=== PATIENT | male | born 1990 | race Caucasian/White ===

== ENCOUNTER 2024-10-26 19:07 | Emergency (ER) | payer OTHER, SELFPAY ==
[2024-10-26 19:14] VITALS: BP 164/104; PULSE 112; RESP 16; TEMP 37.2; O2SAT 97
[2024-10-26 19:22] VITALS: PULSE 121; RESP 16; TEMP 37.1
[2024-10-26] MEDS: Ondansetron O.D.T. 4 MG TABEF PO (19:32)
--- NOTE | 2024-10-26 19:53 | ED.GENADUL_ITS ---
Discharge Plan Disposition Patient Disposition: Home Discharge Details Clinical Impression: Traveler's diarrhea Primary Care Provider: None,None ED Provider: Shanthi Lan Home Meds and New Rx's Prescriptions: New ondansetron 4 mg tablet,disintegrating 4 mg PO Q8H PRNQty: 7 0RF Discharge Instructions Instructions: Travelers' diarrhea Additional Instructions: Please continue the antibiotics as prescribed. You may use the Zofran ODT as needed for nausea/vomiting. Stay well-hydrated. Please be sure to drink plenty of electrolyte rich fluids such as Pedialyte and Gatorlyte, adding in chicken and beef broth, then gentle foods like bananas, toast, chicken noodle soup, and noodles without sauce or seasonings. You may use Tylenol as needed for body aches. Your potassium was a bit low today. I recommend supplementing with potassium rich foods such as oranges, bananas, and potatoes. This should correct itself once you are eating regular foods again. Return to emergency care if you are unable to keep down any fluids, have severe abdominal pain, have blood in your stool or vomit, decreased urine output, or if you are very worried and need to be rechecked again immediately. Discharge Data Discharge Date/Time-TO BE ENTERED AT DEPARTURE: 10/26/24 22:11 HPI General Date/Time Provider Initiated Documentation: 10/26/24 19:11 . HPI Narrative: Law is a 33year old male who presents to the emergency department today for evaluation of subjective fever/chills, headache, body aches/joint aches, nausea, and frequent watery diarrhea. He reports symptoms started 3 days ago while traveling to [facility], [place]. Today he saw a telehealth doctor, was prescribed azithromycin, but started vomiting after taking his medication. He vomited 3 times. Denies blood in stool or vomit. He was in [facility], arrived 1 week ago and returned yesterday. He is not sure what may have caused symptoms, other travelers in his green party were sick with food poisoning that only lasted a day or 2, his has been the worst. He admits that he was also bitten by a number of mosquitoes while he was on excursions. Denies significant past medical history, immunocompromise, abdominal surgeries. Physical exam reassuring. Law is alert and oriented, no acute distress. Moist mucous membranes. Easy work of breathing, lung sounds clear bilaterally. Normal heart sounds, tachycardia noted. Abdomen is soft, nondistended, nontender to palpation with normoactive bowel sounds. D/dx includes but is not limited to: Bacterial gastroenteritis related to traveling and developing country, dehydration, electrolyte imbalance. Low suspicion for Shiga toxin producing E. coli I independently interpreted the following tests: CBC reassuring. CMP consistent with gastric losses, mild hypokalemia, hyponatremia, and hypomagnesemia noted. Creatinine 1.5, normal BUN. While in the emergency department, Law received p.o. Zofran and oral rehydration, he was able to sip fluids without difficulty, but was worried that he is not feeling better. 1 L IV fluids and Toradol given. He reports feeling significantly better, and feels he is good to go home. VS improved after rehydration. History and presentation consistent with bacterial gastroenteritis. Recommend initiating azithromycin as prescribed. Stool samples pending Reviewed discharge instructions with patient, including symptomatic management, advancement of diet, and red flags indicating need for return to emergency care Related Data Home Medications ?Medication ?Instructions ?Recorded ?Confirmed ondansetron 4 mg disintegrating 4 mg PO Q8H PRN #7 tabs 10/26/24 tablet Previous Rx's ?Medication ?Instructions ?Recorded ondansetron 4 mg disintegrating 4 mg PO Q8H PRN #7 tabs 10/26/24 tablet Allergies Allergy/AdvReac Type Severity Reaction Status Date / Time No Known Allergies Allergy Unverified 10/26/24 19:13 General Stated Complaint: Nausea/Vomit/Diar MAYRA: 3 Review of Systems Narrative: see HPI Exam Const General: cooperative, comfortable, no acute distress, well developed and well groomed Nutritional Appearance: average body habitus and well nourished Orientation: alert and oriented x3 HENMT Face and sinus: normal facial exam Mouth: oral mucosae normal, lip normal, tongue normal, salivary ducts normal, oropharynx normal and moist mucous membranes Resp Effort & Inspection: normal respiratory effort and able to speak in complete sentences Auscultation: clear to auscultation bilaterally Cardio Rate: tachycardic Rhythm: regular rhythm GI Inspection: normal to inspection and non-distended Palpation: soft, not rigid and nontender Auscultation: normal bowel sounds Skin General skin exam: no rashes or lesions noted Course Vital Signs Vital signs: Vital Signs Temperature 37.2 C 10/26/24 19:14 Pulse 112 H 10/26/24 19:14 Respiratory Rate 16 10/26/24 19:14 Blood Pressure 164/104 H 10/26/24 19:14 Pulse Oximetry 97 10/26/24 19:14 Temperature 37.1 C 10/26/24 19:22 Temperature Source Oral 10/26/24 19:22 Pulse 121 H 10/26/24 19:22 Respiratory Rate 16 10/26/24 19:22 Blood Pressure 164/104 H 10/26/24 19:14 Blood Pressure Position Sitting 10/26/24 19:14 Pulse Oximetry 97 10/26/24 19:14 Oxygen Delivery Method Room Air 10/26/24 19:14 Oxygen Flow Rate 0 10/26/24 19:14 Pain Level 0 10/26/24 19:14 Medical Decision Making Quality:SDOH Health Related Social Needs: No Data to Display PFSH All Active Problems (Updated 10/26/24 @ 21:39 by Shanthi Sanford) Traveler's diarrhea (Acute) Social History Smoking/Tobacco Use Status: Never Smoking risk assessment performed?: Yes Alcohol Intake: current Alcohol Intake frequency: a few times a month Alcohol type: beer Substance use type: does not use Housing: house Do you feel safe at home: Yes
[2024-10-26] MEDS: Electrolyte SOLUTION,ORAL 1000 ML BTL (19:57)
[2024-10-26 20:06] LABS: Abs Immature Grans 0.03 10^3/uL (0.0-0.06); Absolute Basophil Count 0.03 10^3/uL (0.0-0.2); Absolute Eosinophil Count 0.27 10^3/uL (0.0-0.7); Absolute Lymphocyte Count 0.72 10^3/uL (1.2-3.4); Absolute Monocyte Count 1.05 10^3/uL (0.1-0.8); Absolute Neutrophil Count 7.01 10^3/uL (1.2-6.7); Basophils % 0.3 %; HCT 49.4 % (40.0-50.0); Immature Grans % 0.3 %; Lymphocytes % 7.9 %; MCH 29.4 pg (27.0-33.0); MCHC 34.4 % (32.0-36.0); MCV 86 fL (80-95); MPV 9.3 fL (8.0-11.0); Monocytes % 11.5 %; Platelet Count 270 10^3/uL (130-400); RBC 5.78 10^6/uL (4.36-5.78); RDW 12.9 % (11.8-14.1); RDW-SD 40.4 fL; WBC 9.11 10^3/uL (4.4-10.8)
[2024-10-26 20:16] LABS: Anion Gap 11.6 mmol/L (3-11); BUN 10 mg/dL (7-18); CO2 27.4 mmol/L (21.0-32.0); CREATININE 1.5 mg/dL (0.70-1.30); Calcium 9.8 mg/dL (8.5-10.1); Chloride 94 mmol/L (98-107); Estimated GFR 63.04 (mL/min/1.73m2); Glucose 124 mg/dL (74-106); Magnesium 1.7 mg/dL (1.8-2.4); Sodium 133 mmol/L (136-145)
[2024-10-26] MEDS: Ketorolac 15 MG/ML VIAL IVP (21:05)
[2024-10-26] MEDS: Normal Saline 1,000 ML 1000 ML IV (21:05)
[2024-10-26] MEDS: Potassium Bicarbonate/Cit AC 25 MEQ TABLET.EFF PO (21:11)
[2024-10-26] MEDS: Azithromycin 250 MG TAB 500 MG PO (21:11)
[2024-10-26 21:14] VITALS: PULSE 94; O2SAT 96
[2024-10-26] MEDS: Ondansetron O.D.T. 4 MG TABEF, 3 TABS/BTL PO (21:43)
[2024-10-26 22:11] VITALS: BP 159/77; PULSE 96; RESP 16; TEMP 37; O2SAT 96
[2024-10-27 19:51] LABS: Campylobacter PCR Negative (Negative); Salmonella PCR Positive (Negative); Shiga Toxin PCR Negative (Negative); Shigella/Enteroinvasive Ecoli Negative (Negative)
--- NOTE | 2024-10-28 15:07 | W.ED.FU ---
Follow Up Plan: Discussed results of Salmonella with patient's and patient, patient was transition to ciprofloxacin from azithromycin today. He will take the ciprofloxacin as prescribed. He states he still having 20+ episodes of diarrhea daily they are wondering why this is not improving. He was encouraged to give the antibiotics another several days to work and to keep hydrated. Reiterated that patient able to return to the emergency department at any time for reassessment and hydration as deemed necessary.
--- NOTE | 2024-10-29 16:17 | NUR.NOTE ---
Nursing Note: Received call from patient questioning his bloating and wondering if this is a side effect of the cipro he is taking. Return precautions given and discussed possible side effects of his infection and medications. Pt states he is eating live cultures, probiotics, and the diarrhea is slowing down. Pt verbalized understanding
== END 2024-10-26 22:11 | disposition home or self-care (01) ==
PROVIDERS: Emergency Provider Nurse Practitioner Family
DX: R19.7 Diarrhea, unspecified (principal); R11.0 Nausea
CPT/HCPCS: 36415; 80048; 87505; 96361; 96374; 99284; 83735; 85025; J1885

== ENCOUNTER 2024-10-29 17:40 | Observation (INO) | payer OTHER, SELFPAY ==
[2024-10-29 17:43] VITALS: BP 138/85; PULSE 83; RESP 15; TEMP 36.6; O2SAT 98
[2024-10-29 17:47] VITALS: BP 138/85; PULSE 83; RESP 15; TEMP 36.6; O2SAT 98
--- NOTE | 2024-10-29 18:00 | DI.CT_ITS ---
Exam(s) CT RENAL COLIC WO EXAM: CT RENAL COLIC WO CLINICAL HISTORY: R flank pain. TECHNIQUE: Imaging Protocol: Axial computed tomography images with coronal and sagittal reformatted images were created and reviewed CONTRAST MATERIAL: Intravenous: none Oral: None COMPARISON: No exams were available for comparison FINDINGS: VISUALIZED LUNG BASES: No nodules nor pleural effusions evident. ABDOMEN: There is no ascites. LIVER: There are no obvious focal hepatic lesions evident of this noninfused study. GALLBLADDER/BILIARY: Gallbladder wall is thickened and there is some pericholecystic fat stranding in the gallbladder fossa. Also small densities within the gallbladder either polyps or small calculi. CBD is not dilated. PANCREAS: No evidence of pancreatic mass nor dilatation of the pancreatic duct. SPLEEN: Spleen size is upper normal, with cephalocaudal measurement of 13 cm. ADRENALS: There are no significant adrenal masses. KIDNEYS:No cysts evident. No solid renal masses. No calculi nor hydronephrosis.. Ureters are not dil ated ABDOMINAL AORTA: Abdominal aorta is not enlarged. LYMPH NODES: There is no retroperitoneal nor paraaortic adenopathy. ABDOMINAL WALL: No evidence of significant anterior abdominal wall nor inguinal hernia. GI: There is no evidence of bowel obstruction, free air, nor abscess. PELVIS: LYMPH NODES: There is no intrapelvic nor inguinal adenopathy. GI: There is a 2 mm calcification noted within the cecum at its junction with the appendix.. The daria endix diameter is 5 mm, within normal limits. There is no periappendiceal streaking..No evidence of sigmoid diverticulitis. URINARY BLADDER: Bladder wall is mildly uniformly thickened. No distinct mass. No radiopaque calcul i seen in the bladder lumen. REPRODUCTIVE: Prostate size upper normal. Seminal vesicles unremarkable. OSSEOUS: No fractures. No ominous osseous lesions. IMPRESSION: 1. Gallbladder wall appears slightly thickened and there is some mild pericholecystic fat stranding a s well as small densities in the gallbladder lumen. The gallbladder itself is not distended and the CBD is not dilated. Recommend follow-up right upper quadrant ultrasound as these findings are suspic ious for acute cholecystitis. 2. No evidence of urinary tract calculi. No hydronephrosis nor hydroureter. No radiopaque calculi s een in the urinary bladder lumen. 3. There is an appendicolith but no evidence of acute appendicitis. Report called by myself to the ER provider 10/29/2024 at 6:45 p.m. RADIATION DOSE DELIVERED: 830.81mGy.cm Total DLP DATA REPOSITORY: All CT scans at this facility are submitted to the National Radiology Data Registry (NRDR) Dose Index Registry (DIR) with the [employer] ([employer]). RADIATION OPTIMIZATION: All CT scans at this facility use at least one of these dose optimization te chniques: automated exposure control; mA and/or kV adjustment per patient size (includes targeted exa ms where dose is matched to clinical indication); or iterative reconstruction.
[2024-10-29 18:34] LABS: Abs Immature Grans 0.06 10^3/uL (0.0-0.06); Absolute Basophil Count 0.05 10^3/uL (0.0-0.2); Absolute Eosinophil Count 0.06 10^3/uL (0.0-0.7); Absolute Lymphocyte Count 2.02 10^3/uL (1.2-3.4); Absolute Neutrophil Count 5.33 10^3/uL (1.2-6.7); Basophils % 0.6 %; Eosinophils % 0.7 %; HCT 47.3 % (40.0-50.0); HGB 16.7 g/dL (13.5-17.5); Immature Grans % 0.7 %; Lymphocytes % 22.4 %; MCHC 35.3 % (32.0-36.0); MCV 82 fL (80-95); MPV 9.2 fL (8.0-11.0); Monocytes % 16.6 %; Platelet Count 352 10^3/uL (130-400); RBC 5.75 10^6/uL (4.36-5.78); RDW 12.5 % (11.8-14.1); RDW-SD 38.1 fL; WBC 9.02 10^3/uL (4.4-10.8)
[2024-10-29 18:43] LABS: Bilirubin Negative (Negative); Blood Trace-intact (Negative); Clarity Clear (Clear); Glucose Negative (Negative); Ketones Negative (Negative); Leukocyte Esterase Negative (Negative); Nitrite Negative (Negative); Specific Gravity 1.015 (1.005-1.025); Urobilinogen 0.2 mg/dL (Up to 0.2)
[2024-10-29 18:44] LABS: Anion Gap 7.5 mmol/L (3-11); BUN 16 mg/dL (7-18); CO2 29.5 mmol/L (21.0-32.0); CREATININE 1.4 mg/dL (0.70-1.30); Calcium 9.5 mg/dL (8.5-10.1); Chloride 95 mmol/L (98-107); Estimated GFR 68.49 (mL/min/1.73m2); Glucose 103 mg/dL (74-106); Lipase 57 U/L (<78); Sodium 132 mmol/L (136-145)
--- NOTE | 2024-10-29 18:44 | W.ED.GENAD ---
Discharge Plan Disposition Patient Disposition: Admit to [facility] Condition: Stable Discharge Details Chief Complaint: Urinary Clinical Impression: Cholecystitis with cholelithiasis, Salmonella enteritis, Acute hepatitis Primary Care Provider: None,None ED Provider: Alfredito Moran Home Meds and New Rx's Prescriptions: No Action ondansetron 4 mg tablet,disintegrating 4 mg PO Q8H PRNQty: 7 0RF ciprofloxacin HCl 500 mg tablet 500 mg PO Q12H dextroamphetamine-amphetamine [Adderall] 20 mg tablet 20 mg PO DAILY PRN (Reason: work) HPI General Date/Time Provider Initiated Documentation: 10/29/24 17:48. HPI Narrative: 33 year-old male presents to ED today by POV/ambulating with his spouse with a chief complaint of continued diarrhea, R flank pain, difficulty passing urine, dark urine- in the setting of confirmed salmonella infection after a recent trip to the [place], where many in his constitution party got sick, but all have recovered save for him. He has been having 25 bouts per day of diarrhea, but pursuing aggressive PO hydration. He was switched to ciprofloxacin after a few doses of azithromycin, and has been compliant with two doses of cipro. Quality described as continued diarrhea, with flank pain on R side, no radiation to vomiting, chest pain, fever, anterior abdominal pain, black/bloody stools, cough, shortness of breath, headache, near syncope. Severity is described as moderate to severe for diarrhea. Palliating factors include ciprofloxacin and Zofran with some relief. Provoking factors include nothing specific. Patient not anticoagulated. Related Data Home Medications ?Medication ?Instructions ?Recorded ?Confirmed ondansetron 4 mg disintegrating 4 mg PO Q8H PRN #7 tabs 10/26/24 10/29/24 tablet ciprofloxacin HCl 500 mg tablet 500 mg PO Q12H 10/29/24 10/29/24 dextroamphetamine-amphetamine 20 20 mg PO DAILY PRN work 10/29/24 10/29/24 mg tablet (Adderall) Previous Rx's ?Medication ?Instructions ?Recorded ondansetron 4 mg disintegrating 4 mg PO Q8H PRN #7 tabs 10/26/24 tablet Allergies Allergy/AdvReac Type Severity Reaction Status Date / Time No Known Allergies Allergy Unverified 10/29/24 17:48 General Stated Complaint: Urinary MAYRA: 3 Review of Systems All systems reviewed & are unremarkable except as noted in HPI and below Exam Narrative Exam Narrative: GENERAL APPEARANCE: Well-nourished, non-toxic, awake and alert, atraumatic, no acute distress. SKIN: Warm, pink, dry, intact, without rashes/lesions/ulcerations. HEAD: Normocephalic, atraumatic, normal hair distribution for gender/age. EYES: Normal conjunctiva, no exudates on lids/lashes. ENT: Nares patent, no circumoral cyanosis, no facial swelling NECK: Supple, trachea midline, painless cervical ROM. LUNGS/CHEST: Lungs CTA bilaterally- no rhonchi/rales/wheezes diffusely, non-labored respirations, normal A/P diameter, symmetrical expansion, no chest wall deformity HEART (CV/PV): Regular rate and rhythm without murmur, no peripheral edema, no JVD. ABDOMEN: Soft, non-distended, no guarding, no RUQ tenderness, negative Ribeiro's sign, R CVA tenderness to percussion MSK: Normal ROM, no swelling/deformity to bilateral UEs or LEs, moving all extremities without weakness, no cyanosis, spine midline without tenderness, normal curvature. NEURO: Mental Status AAOx4 - alert to person, place, time, events No facial droop, no forehead involvement. Motor: No focal weakness - strength 5/5 in bilateral UEs and LEs, proximal and distal, symmetric. Sensory: sensation intact to light touch globally. Gait normal: patient ambulated without ataxia into ED room. PSYCH: euthymic, cooperative, pleasant, appropriate speech Course Vital Signs Vital signs: Vital Signs Temperature 36.6 C 10/29/24 17:43 Pulse 83 10/29/24 17:43 Respiratory Rate 15 10/29/24 17:43 Blood Pressure 138/85 10/29/24 17:43 Pulse Oximetry 98 10/29/24 17:43 Temperature 36.6 C 10/29/24 17:47 Pulse 83 10/29/24 17:47 Respiratory Rate 15 10/29/24 17:47 Blood Pressure 138/85 10/29/24 17:47 Blood Pressure Position Sitting 10/29/24 17:47 Pulse Oximetry 98 10/29/24 17:47 Oxygen Delivery Method Room Air 10/29/24 17:47 Oxygen Flow Rate 0 10/29/24 17:47 Lab/Test Results Lab/Test Results: Laboratory Tests Range/Units 10/29/24 18:26 WBC (4.4-10.8) 10^3/uL 9.02 RBC (4.36-5.78) 10^6/uL 5.75 Hgb (13.5-17.5) g/dL 16.7 Hct (40.0-50.0) % 47.3 MCV (80-95) fL 82 D MCH (27.0-33.0) pg 29.0 MCHC (32.0-36.0) % 35.3 RDW (11.8-14.1) % 12.5 Plt Count (130-400) 10^3/uL 352 MPV (8.0-11.0) fL 9.2 Immature Gran % % 0.7 Neutrophils % % 59.0 Lymphocytes % % 22.4 Monocytes % % 16.6 Eosinophils % % 0.7 Basophils % % 0.6 Nucleated RBC % (0.0-0.3) % 0.0 Absolute Neutrophils (1.2-6.7) 10^3/uL 5.33 Absolute Lymphocytes (1.2-3.4) 10^3/uL 2.02 Absolute Monocytes (0.1-0.8) 10^3/uL 1.50 H Absolute Eosinophils (0.0-0.7) 10^3/uL 0.06 Absolute Basophils (0.0-0.2) 10^3/uL 0.05 Medical Decision Making This dictation utilizes [id number] dictation software and may contain unedited grammatical errors. 33 year-old male presents to ED today by POV/ambulating with his spouse with a chief complaint of continued diarrhea, R flank pain, difficulty passing urine, dark urine- in the setting of confirmed salmonella infection after a recent trip to the [place], where many in his constitution party got sick, but all have recovered save for him. He has been having 25 bouts per day of diarrhea, but pursuing aggressive PO hydration. He was switched to ciprofloxacin after a few doses of azithromycin, and has been compliant with two doses of cipro. Quality described as continued diarrhea, with flank pain on R side, no radiation to vomiting, chest pain, fever, anterior abdominal pain, black/bloody stools, cough, shortness of breath, headache, near syncope. Severity is described as moderate to severe for diarrhea. Palliating factors include ciprofloxacin and Zofran with some relief. Provoking factors include nothing specific. Patients' medical history: Negative, otherwise healthy. Family and social history: Recent travel to the [place]. Pertinent exam findings / vital signs include right CVA tenderness, no right upper quadrant tenderness, negative Ribeiro sign, otherwise nonperitoneal abdomen, lungs CTA, neuro intact, nontoxic afebrile. Differential / pathologies of concern include Salmonella, hepatitis, cholecystitis, renal colic, dehydration, electrolyte abnormality. Diagnostic studies of: -CBC, BMP, magnesium, lipase, liver panel, UA, CT renal study without, acute hepatitis panel. -CBC shows no leukocytosis, no actionable abnormality -'s BMP shows mildly low sodium at 132, low potassium at 3.0 -Magnesium within normal limits -LFTs show a mild early obstructive biliary pattern with a total bili of 1.4 conjugated bili of 0.5, shows acute hepatitis ALT greater than AST 213 greater than 110, UA shows no actionable abnormality -CT shows acute cholecystitis with thickened gallbladder wall and pericholecystic fat stranding, shows no dilation of CBD Interventions of: -1 g magnesium, 1 L NS IVF, 40 mEq potassium p.o., 10 mEq X2 potassium IV, consult with surgery plan to admit for ultrasound of the right upper quadrant tomorrow, trending of LFTs, will continue IV Cipro Flagyl. ED Course/Assessment/Plan: 33-year-old otherwise healthy male returned recently from the [place] and has confirmed Salmonella enteritis, he was switched to ciprofloxacin yesterday and has had 2 doses but continues to have right flank pain, difficulty urinating and some diarrhea, he shows some dehydration on labs, unclear whether he has a complication of hepatitis from Salmonella infection but he does have elevated LFTs, he also shows acute cholecystitis on CT scan, I discussed this with surgery on-call Dr. Ortiz he has no right upper quadrant tenderness, they will have him admitted to medicine overnight to trend these studies and he will be n.p.o. after midnight with ultrasound ordered for tomorrow morning. Dr. Murillo accepted for admission at 1999. Findings not consistent with choledocholithiasis, sepsis, jaundice. Disposition of Cholecystitis without cholelithiasis, Salmonella enteritis, acute hepatitis Patient verbalized understanding of the plan and return to ED criteria and engaged in shared decision making. Medical Records Medical records reviewed: Yes I reviewed the patient's medical records. Imaging Data Radiologic Study: Attestation: I personally reviewed and interpreted this imaging study as follows: Imaging: CT Scan Radiologist's impression: EXAM: CT RENAL COLIC WO CLINICAL HISTORY: R flank pain. TECHNIQUE: Imaging Protocol: Axial computed tomography images with coronal and sagittal reformatted images were created and reviewed CONTRAST MATERIAL: Intravenous: none Oral: None COMPARISON: No exams were available for comparison FINDINGS: VISUALIZED LUNG BASES: No nodules nor pleural effusions evident. ABDOMEN: There is no ascites. LIVER: There are no obvious focal hepatic lesions evident of this noninfused study. GALLBLADDER/BILIARY: Gallbladder wall is thickened and there is some pericholecystic fat stranding in the gallbladder fossa. Also small densities within the gallbladder either polyps or small calculi. CBD is not dilated. PANCREAS: No evidence of pancreatic mass nor dilatation of the pancreatic duct. SPLEEN: Spleen size is upper normal, with cephalocaudal measurement of 13 cm. ADRENALS: There are no significant adrenal masses. KIDNEYS:No cysts evident. No solid renal masses. No calculi nor hydronephrosis.. Ureters are not dilated ABDOMINAL AORTA: Abdominal aorta is not enlarged. LYMPH NODES: There is no retroperitoneal nor paraaortic adenopathy. ABDOMINAL WALL: No evidence of significant anterior abdominal wall nor inguinal hernia. GI: There is no evidence of bowel obstruction, free air, nor abscess. PELVIS: LYMPH NODES: There is no intrapelvic nor inguinal adenopathy. GI: There is a 2 mm calcification noted within the cecum at its junction with the appendix.. The appendix diameter is 5 mm, within normal limits. There is no periappendiceal streaking..No evidence of sigmoid diverticulitis. URINARY BLADDER: Bladder wall is mildly uniformly thickened. No distinct mass. No radiopaque calculi seen in the bladder lumen. REPRODUCTIVE: Prostate size upper normal. Seminal vesicles unremarkable. OSSEOUS: No fractures. No ominous osseous lesions. IMPRESSION: 1. Gallbladder wall appears slightly thickened and there is some mild pericholecystic fat stranding as well as small densities in the gallbladder lumen. The gallbladder itself is not distended and the CBD is not dilated. Recommend follow-up right upper quadrant ultrasound as these findings are suspicious for acute cholecystitis. 2. No evidence of urinary tract calculi. No hydronephrosis nor hydroureter. No radiopaque calculi seen in the urinary bladder lumen. 3. There is an appendicolith but no evidence of acute appendicitis. Report called by myself to the ER provider 10/29/2024 at 6:45 p.m. Lab Data Lab results reviewed: Yes I reviewed the patient's lab results. Labs: Laboratory Tests Range/Units 10/29/24 10/29/24 18:05 18:26 WBC (4.4-10.8) 10^3/uL 9.02 RBC (4.36-5.78) 10^6/uL 5.75 Hgb (13.5-17.5) g/dL 16.7 Hct (40.0-50.0) % 47.3 MCV (80-95) fL 82 D MCH (27.0-33.0) pg 29.0 MCHC (32.0-36.0) % 35.3 RDW (11.8-14.1) % 12.5 Plt Count (130-400) 10^3/uL 352 MPV (8.0-11.0) fL 9.2 Immature Gran % % 0.7 Neutrophils % % 59.0 Lymphocytes % % 22.4 Monocytes % % 16.6 Eosinophils % % 0.7 Basophils % % 0.6 Nucleated RBC % (0.0-0.3) % 0.0 Absolute Neutrophils (1.2-6.7) 10^3/uL 5.33 Absolute Lymphocytes (1.2-3.4) 10^3/uL 2.02 Absolute Monocytes (0.1-0.8) 10^3/uL 1.50 H Absolute Eosinophils (0.0-0.7) 10^3/uL 0.06 Absolute Basophils (0.0-0.2) 10^3/uL 0.05 Sodium (136-145) mmol/L 132 L Potassium (3.5-5.1) mmol/L 3.0 L Chloride (98-107) mmol/L 95 L Carbon Dioxide (21.0-32.0) mmol/L 29.5 Anion Gap (3-11) mmol/L 7.5 BUN (7-18) mg/dL 16 Creatinine (0.70-1.30) mg/dL 1.4 H Est GFR (CKD-EPI 2020) (mL/min/1.73m2) 68.49 Glucose (74-106) mg/dL 103 Calcium (8.5-10.1) mg/dL 9.5 Magnesium (1.8-2.4) mg/dL 2.4 Total Bilirubin (0.2-1.0) mg/dL 1.42 H Conjugated Bilirubin (0.0-0.2) mg/dL 0.5 H AST (15-37) U/L 110 H ALT (16-63) U/L 213 H Alkaline Phosphatase (46-116) U/L 93 Total Protein (6.4-8.2) g/dL 8.2 Albumin (3.4-5.0) g/dL 3.7 Lipase (<78) U/L 57 Urine Color (Yellow) Yellow Urine Clarity (Clear) Clear Urine pH (5-8) 6.0 Ur Specific [place] (1.005-1.025) 1.015 Urine Protein (Neg-Trace) mg/dL 30 H Urine Ketones (Negative) mg/dL Negative Urine Blood (Negative) Trace-intact H Urine Nitrite (Negative) Negative Urine Bilirubin (Negative) Negative Urine Urobilinogen (Up to 0.2) mg/dL 0.2 Ur Leukocyte Esterase (Negative) Negative Urine RBC (0-2) HPF 0-2 Urine WBC (0-5) HPF Negative Ur Epithelial Cells (Negative) HPF Negative Urine Crystals (Negative) HPF Negative Urine Bacteria (Negative) HPF Rare Urine Casts (Negative) LPF Negative Urine Mucus (Negative) Trace Urine Other (Negative) Negative Ur Culture Indicated? No Urine Glucose (Negative) mg/dL Negative Quality:SDOH Health Related Social Needs: No Data to Display PFSH All Active Problems (Updated 10/29/24 @ 20:28 by NORMA Jones) Cholecystitis with cholelithiasis (Acute) Acute hepatitis (Acute) Salmonella enteritis (Acute) Traveler's diarrhea (Acute) Social History Smoking/Tobacco Use Status: Never Smoking risk assessment performed?: Yes Alcohol Intake: current Alcohol Intake frequency: a few times a month Alcohol type: beer Substance use type: does not use Housing: house Do you feel safe at home: Yes PAWSS Have you Been Recently Intoxicated or Drunk Within the Last 30 days?: Yes Have you Ever Experienced Previous Episodes of Alcohol Withdrawal?: No Have you ever Experienced Withdrawal Seizures?: No Have you ever Experienced Delirium Tremens(DT)s?: No Have you ever undergone Alcohol Rehabilitation Treatment (i.e, inpt ot outpatient treatment programs)?: No Have you ever Experienced Blackouts?: No Have you ever Combined Alcohol with other Downers within the last 90 days?: No Have you ever Combined Alcohol with any other Substance of Abuse during the last 90 days?: No Positive Blood Alcohol level on Presentation? [PCS.BAL]: No Evidence of Increased Autonomic Activity (i.e. HR>120, tremor, sweating, agitation, nausea)?: No Result: 1
[2024-10-29 18:48] LABS: Bacteria Rare HPF (Negative); C & S Indicated? No; Casts Negative LPF (Negative); Crystals Negative HPF (Negative); Epithelial Cells Negative HPF (Negative); Mucus Trace (Negative); Other Cells Negative (Negative); RBC 0-2 HPF (0-2); WBC Negative HPF (0-5)
[2024-10-29 18:48] LABS: ALT 213 U/L (16-63); AST 110 U/L (15-37); Albumin 3.7 g/dL (3.4-5.0); Alkaline Phosphatase 93 U/L (46-116); Bilirubin, Direct 0.5 mg/dL (0.0-0.2); Bilirubin, Total 1.42 mg/dL (0.2-1.0); Magnesium 2.4 mg/dL (1.8-2.4); Total Protein 8.2 g/dL (6.4-8.2)
[2024-10-29] MEDS: Potassium Chloride 20 MEQ TABCR 40 MEQ PO (19:12)
[2024-10-29] MEDS: MAGNESIUM SULFATE 1 GM/100 ML BAG IV_INF (19:12)
[2024-10-29] MEDS: Normal Saline 1,000 ML 1000 ML IV (19:12)
--- NOTE | 2024-10-29 19:28 | W.SURGCON ---
Date of service: 10/29/24 Time of Service: 19:28 Assessment and Plan Assessment and plan (1) Family history of elevated blood lipids: Status: Acute Assessment and plan: Check lipid levels in a.m. (2) Acute hepatitis: Status: Acute Assessment and plan: - Will check for hep A -DR is considered low risk profile for malaria. However there is occasionally some malaria present. If we cannot find any other relevant causes, then testing may be indicated (3) Cholecystitis with cholelithiasis: Status: Acute Assessment and plan: -Present on CT read by Tamara ace. I did personally review his labs and CT scan results - Ultrasound in a.m. -Discussed with the patient that just because you have a normal ultrasound does not rule out gallbladder disease may require HIDA scan (4) Salmonella enteritis: Status: Acute Assessment and plan: Continue treatment for Salmonella with the Cipro (5) Hypokalemia due to excessive gastrointestinal loss of potassium: Status: Acute Assessment and plan: Replace as needed (6) Acute diarrhea: Status: Acute Assessment and plan: Check for C. difficile Probiotics No antidiarrheal medicines Supportive care History of Present Illness Narrative: HISTORY OF PRESENT ILLNESS The patient presents for evaluation of diarrhea. Patient was recently in the [place] along with his significant other and some friends. His significant other and friends as well as many other people at the resort all recorded an episode of GI distress. This consisted of some vague abdominal pain and diarrhea and diarrhea but was self-limited to 24 to 48 hours. Law's been experiencing severe explosive diarrhea, greater than 20 stools a day, nausea and vomiting, and fever and chills. This is what prompted him to come to the ER on Monday. He did not have a fever or white count on Monday. They did do school stool cultures which were positive for Salmonella and he was started on Cipro. They have not experienced any abdominal pain today, but note a sensation of bloating. They have not had a solid bowel movement since last . They recall a single instance of red discoloration in their stool, which has not recurred. They have not vomited blood. They have not recorded a high fever but report experiencing night sweats and headaches. He feels like he has been having a sore throat. They last vomited on Monday and Monday. They have been managing their nausea with Zofran, taken every 5 hours. They have been attempting to maintain their food intake despite their symptoms. Patient also notes that he has been having a lot of gas and bloating. Patient is also noted severe fatigue, headaches, muscle pain. He is also noted dark urine. He also admits to multiple mosquito bites. They were in [facility] in [place]. [facility] is low risk for malaria and prophylaxis is not required. They have had several episodes of severe gastrointestinal distress in the past 2 years, which they attribute to lactose intolerance. These episodes are characterized by A. pain and diarrhea, lasting approximately 3 to 4 hours, after which they feel better. Patient thinks it was largely limited to dairy products. His significant other thinks it may be attributed to fatty foods. He notes when he does get those after these episodes he does have back and shoulder pain. He has never noticed any blood in his stools with other attacks. His weight has been stable. He does have a brother that is also lactose intolerant and also has celiac disease. Both the patient and his significant significant other report [facility] ill with some type of GI s/s. He has also been having back and right shoulder pain with this attack of diarrhea & nausea. They have not had any surgeries in the past. They are a recreational smoker, having smoked tobacco for over 10 years, but have abstained for the past 2 weeks. They have a history of elevated cholesterol levels, with a reading of 198 three years ago. They also have a history of high blood pressure. He is not on any medication for that There is also extensive family history of elevated cholesterol. He is unaware of anyone in the family having gallbladder issues He has never had surgery or anesthesia in the past there is no family history of issues with anesthesia. He was on azithromycin for 2 days and then transition to Cipro. He has been taking Zofran for nausea. He is on Adderall. He is not on any medication for cholesterol/HTN. He smokes a pack a day of tobacco He does use THC on a regular basis. Review of Systems All systems reviewed & are unremarkable except as noted in HPI and below PFSH All Active Problems (Updated 10/29/24 @ 21:03 by Cady Ortiz DO) Acute diarrhea (Acute) Hypokalemia due to excessive gastrointestinal loss of potassium (Acute) Family history of elevated blood lipids (Acute) Cholecystitis with cholelithiasis (Acute) Acute hepatitis (Acute) Salmonella enteritis (Acute) Social History Smoking/Tobacco Use Status: Never Smoking risk assessment performed?: Yes Alcohol Intake: current Alcohol Intake frequency: a few times a month Alcohol type: beer Substance use type: does not use Housing: house Do you feel safe at home: Yes Exam Narrative Exam Narrative: PHYSICAL EXAM GENERAL APPEARANCE: Alert, healthy appearance, oriented, x 3,?he appears mildly dehydrated but not septic HYDRATION: Well hydrated HEAD, EYES, EARS, NECK, THROAT: Head is normocephalic, pupils equal, round, reactive to light and accommodation, ocular movement intact, sclera clear and no jaundice. ?Dentition intact. LUNGS: normal respiration/normal chest excursion. ?Clear to auscultation bilaterally. ?No wheeze. ?HEART: Regular rate and rhythm. no murmurs EXTREMITY: No edema or cyanosis.? no leg pain, redness, swelling.? ABDOMEN: soft and non-tender to palpation.? Normal bowel sounds.? No right upper quadrant tenderness . He does have pain at T10 on the right and right shoulder pain. Results Last Vital Signs Temp 36.6 C 10/29/24 17:47 Pulse 83 10/29/24 17:47 Resp 15 10/29/24 17:47 BP 138/85 10/29/24 17:47 Pulse Ox 98 10/29/24 17:47 Labs 10/29/24 18:26 10/29/24 18:26 Labs: Laboratory Results - last 24 hr 10/29/24 10/29/24 18:05 18:26 WBC 9.02 RBC 5.75 Hgb 16.7 Hct 47.3 MCV 82 D MCH 29.0 MCHC 35.3 RDW 12.5 Plt Count 352 MPV 9.2 Immature Gran % 0.7 Neutrophils % 59.0 Lymphocytes % 22.4 Monocytes % 16.6 Eosinophils % 0.7 Basophils % 0.6 Nucleated RBC % 0.0 Absolute Neutrophils 5.33 Absolute Lymphocytes 2.02 Absolute Monocytes 1.50 H Absolute Eosinophils 0.06 Absolute Basophils 0.05 Sodium 132 L Potassium 3.0 L Chloride 95 L Carbon Dioxide 29.5 Anion Gap 7.5 BUN 16 Creatinine 1.4 H Est GFR (CKD-EPI 2020) 68.49 Glucose 103 Calcium 9.5 Magnesium 2.4 Total Bilirubin 1.42 H Conjugated Bilirubin 0.5 H AST 110 H ALT 213 H Alkaline Phosphatase 93 Total Protein 8.2 Albumin 3.7 Lipase 57 Urine Color Yellow Urine Clarity Clear Urine pH 6.0 Ur Specific [place] 1.015 Urine Protein 30 H Urine Ketones Negative Urine Blood Trace-intact H Urine Nitrite Negative Urine Bilirubin Negative Urine Urobilinogen 0.2 Ur Leukocyte Esterase Negative Urine RBC 0-2 Urine WBC Negative Ur Epithelial Cells Negative Urine Crystals Negative Urine Bacteria Rare Urine Casts Negative Urine Mucus Trace Urine Other Negative Ur Culture Indicated? No Urine Glucose Negative
--- NOTE | 2024-10-29 19:33 | HPE_ITS ---
Date of service: 10/29/24 Time of Service: 19:34 Assessment and Plan Assessment and plan (1) Salmonella enteritis: Start date: 10/29/24 Status: Acute Assessment and plan: This is a 33-year-old gentleman with recent travel to the [facility] [place] Salmonella enteritis and was not responding well to oral therapy as an outpatient being admitted for IV hydration. He is on IV Cipro with Flagyl. Surgery has been consulted and will see patient because of an abnormal gallbladder on CT of the abdomen. He is not symptomatic for cholecystitis as it appears on the CT. He will have clear fluid diet and n.p.o. after midnight. He is a full code. (2) Acute hepatitis: Status: Acute Assessment and plan: Acutely elevated liver function test with patient not being jaundiced. This may be associated with his enteritis. It also may be associated with passing gallstones but there is no dilatation. This may have occurred when he had flank pain earlier. Surgery is consulted. (3) Cholecystitis with cholelithiasis: Start date: 10/29/24 Status: Acute Assessment and plan: Follow-up with surgery with ultrasound abdomen ordered for the morning. This may be a chronic problem slightly exacerbated by his acute Salmonella enteritis. Patient does have a very strong family history of gallstones on both sides of his family. Surgery has been consulted and will evaluate and follow. History of Present Illness History of Present Illness Chief Complaint: Persistent diarrhea with dehydration Narrative: This is a 33-year-old male patient who recently traveled to the [facility] for vacation over leaving 11 October and returning on October 25. During his vacation he became ill just after the and just prior to returning home. He had fever with fatigue and chills and then began to have profuse diarrhea without blood. They travel back home on October 25 was difficult with the frequent stools and he saw the local walk-in clinic October 26 being begun on erythromycin for traveler's diarrhea and was found to have Salmonella. He had problems keeping the erythromycin down because of nausea and vomiting and was given Zofran disintegrating pills which helped. He did manage to take azithromycin but continued with profuse diarrhea up to 20 stools a day and felt that he was becoming dry. His nausea vomiting was less. He was seen in the ED and evaluated prior to this admission and found to be moderately dehydrated with an elevated creatinine and tachycardia but was not orthostatic. CT scan revealed abnormal gallbladder findings with possible densities in the gallbladder but no dilatation of the gallbladder or common bile duct. There was also an appendicolith in the appendix which did not appear infected. Patient's labs did also reveal elevated liver function test. He was began on IV fluids as well as IV ciprofloxacin with Flagyl and at the time I saw the patient was feeling better with his fluid hydration. He was having minimal nausea. His stools had also slowed down. Before he came in he was having some slight flank pain but mostly this whole process did not involve abdominal pain. He denies any bloody stools or bloody emesis. He is overall healthy and on no medical therapy. He does have a strong family history of gallstones on both sides of the family. He recently did moved to [place] from [place]. Surgery was consulted by the ED physician and advised admission to the medical service for IV hydration overnight and IV antibiotic therapy as discussed. Surgery was to consult in the morning. He is a full code. Review of Systems Narrative: 13 point review of systems otherwise unrevealing or stable. PFSH All Active Problems Acute diarrhea (Acute) Hypokalemia due to excessive gastrointestinal loss of potassium (Acute) Family history of elevated blood lipids (Acute) Cholecystitis with cholelithiasis (Acute) Acute hepatitis (Acute) Salmonella enteritis (Acute) Social History Smoking/Tobacco Use Status: Never Smoking risk assessment performed?: Yes Alcohol Intake: current Alcohol Intake frequency: a few times a month Alcohol type: beer Substance use type: does not use Housing: house Do you feel safe at home: Yes Meds Allergies and Home Medications Allergies Allergy/AdvReac Type Severity Reaction Status Date / Time No Known Allergies Allergy Unverified 10/29/24 17:48 Home Medications ?Medication ?Instructions ?Recorded ?Confirmed ?Type ondansetron 4 mg disintegrating 4 mg PO Q8H PRN #7 tabs 10/26/24 10/29/24 Rx tablet ciprofloxacin HCl 500 mg tablet 500 mg PO Q12H 10/29/24 10/29/24 History dextroamphetamine-amphetamine 20 20 mg PO DAILY PRN work 10/29/24 10/29/24 History mg tablet (Adderall) Exam Narrative Exam Narrative: General: Patient appears mildly obese, mesomorphic, alert and oriented x 3 and in no acute distress. HEENT: Normocephalic, eyes with pupils equal and reactive to light symmetrically, extraocular movement intact and sclera anicteric. Oropharynx with slightly dry mucosa and good dentition. Neck: Supple without JVD. Back: Normal posture without CVA tenderness. Lungs: Clear to auscultation percussion with no focalizing rales or rhonchi. Vesicular breath sounds. Good aeration. Heart: Tachycardic with regular rhythm. No murmurs or gallops appreciated. Abdomen: Mildly obese contour, soft and nontender to palpation with no palpable hepatosplenomegaly. Ribeiro sign is negative. Bowel sounds positive in all quadrants are slightly hyperactive. Genitalia/rectal: Exam deferred. Extremities: Without clubbing, cyanosis or pitting edema. Peripheral pulses intact. Skin: Normal color, warm and dry. Neuro: Cranial nerves II through XII gross intact, no focal motor deficits or tremor. Psych: Normal affect and mood. No abnormal thought processes. Remote and recent memory intact. Results Imaging Imaging Studies: EXAM: CT RENAL COLIC WO Date of exam: 10/29/2024 CLINICAL HISTORY: R flank pain. TECHNIQUE: Imaging Protocol: Axial computed tomography images with coronal and sagittal reformatted images were created and reviewed CONTRAST MATERIAL: Intravenous: none Oral: None COMPARISON: No exams were available for comparison FINDINGS: VISUALIZED LUNG BASES: No nodules nor pleural effusions evident. ABDOMEN: There is no ascites. LIVER: There are no obvious focal hepatic lesions evident of this noninfused study. GALLBLADDER/BILIARY: Gallbladder wall is thickened and there is some pericholecystic fat stranding in the gallbladder fossa. Also small densities within the gallbladder either polyps or small calculi. CBD is not dilated. PANCREAS: No evidence of pancreatic mass nor dilatation of the pancreatic duct. SPLEEN: Spleen size is upper normal, with cephalocaudal measurement of 13 cm. ADRENALS: There are no significant adrenal masses. KIDNEYS:No cysts evident. No solid renal masses. No calculi nor hydronephrosis.. Ureters are not dilated ABDOMINAL AORTA: Abdominal aorta is not enlarged. LYMPH NODES: There is no retroperitoneal nor paraaortic adenopathy. ABDOMINAL WALL: No evidence of significant anterior abdominal wall nor inguinal hernia. GI: There is no evidence of bowel obstruction, free air, nor abscess. PELVIS: LYMPH NODES: There is no intrapelvic nor inguinal adenopathy. GI: There is a 2 mm calcification noted within the cecum at its junction with the appendix.. The appendix diameter is 5 mm, within normal limits. There is no periappendiceal streaking..No evidence of sigmoid diverticulitis. URINARY BLADDER: Bladder wall is mildly uniformly thickened. No distinct mass. No radiopaque calculi seen in the bladder lumen. REPRODUCTIVE: Prostate size upper normal. Seminal vesicles unremarkable. OSSEOUS: No fractures. No ominous osseous lesions. IMPRESSION: 1. Gallbladder wall appears slightly thickened and there is some mild pericholecystic fat stranding as well as small densities in the gallbladder lumen. The gallbladder itself is not distended and the CBD is not dilated. Recommend follow-up right upper quadrant ultrasound as these findings are suspicious for acute cholecystitis. 2. No evidence of urinary tract calculi. No hydronephrosis nor hydroureter. No radiopaque calculi seen in the urinary bladder lumen. 3. There is an appendicolith but no evidence of acute appendicitis. Labs 10/29/24 18:26 10/29/24 18:26 Labs: Laboratory Results - last 24 hr 10/29/24 10/29/24 18:05 18:26 WBC 9.02 RBC 5.75 Hgb 16.7 Hct 47.3 MCV 82 D MCH 29.0 MCHC 35.3 RDW 12.5 Plt Count 352 MPV 9.2 Immature Gran % 0.7 Neutrophils % 59.0 Lymphocytes % 22.4 Monocytes % 16.6 Eosinophils % 0.7 Basophils % 0.6 Nucleated RBC % 0.0 Absolute Neutrophils 5.33 Absolute Lymphocytes 2.02 Absolute Monocytes 1.50 H Absolute Eosinophils 0.06 Absolute Basophils 0.05 Sodium 132 L Potassium 3.0 L Chloride 95 L Carbon Dioxide 29.5 Anion Gap 7.5 BUN 16 Creatinine 1.4 H Est GFR (CKD-EPI 2020) 68.49 Glucose 103 Calcium 9.5 Magnesium 2.4 Total Bilirubin 1.42 H Conjugated Bilirubin 0.5 H AST 110 H ALT 213 H Alkaline Phosphatase 93 Total Protein 8.2 Albumin 3.7 Lipase 57 Urine Color Yellow Urine Clarity Clear Urine pH 6.0 Ur Specific [place] 1.015 Urine Protein 30 H Urine Ketones Negative Urine Blood Trace-intact H Urine Nitrite Negative Urine Bilirubin Negative Urine Urobilinogen 0.2 Ur Leukocyte Esterase Negative Urine RBC 0-2 Urine WBC Negative Ur Epithelial Cells Negative Urine Crystals Negative Urine Bacteria Rare Urine Casts Negative Urine Mucus Trace Urine Other Negative Ur Culture Indicated? No Urine Glucose Negative Last Vital Signs Temp 36.6 C 10/29/24 17:47 Pulse 83 10/29/24 17:47 Resp 15 10/29/24 17:47 BP 138/85 10/29/24 17:47 Pulse Ox 98 10/29/24 17:47 PAWSS Have you Been Recently Intoxicated or Drunk Within the Last 30 days?: Yes Have you Ever Experienced Previous Episodes of Alcohol Withdrawal?: No Have you ever Experienced Withdrawal Seizures?: No Have you ever Experienced Delirium Tremens(DT)s?: No Have you ever undergone Alcohol Rehabilitation Treatment (i.e, inpt ot outpatient treatment programs)?: No Have you ever Experienced Blackouts?: No Have you ever Combined Alcohol with other Downers within the last 90 days?: No Have you ever Combined Alcohol with any other Substance of Abuse during the last 90 days?: No Positive Blood Alcohol level on Presentation? [PCS.BAL]: No Evidence of Increased Autonomic Activity (i.e. HR>120, tremor, sweating, agitation, nausea)?: No Result: 1 Time Spent Time spent with Patient: 55-74 minutes Time was spent: preparing to see the patient(eg.review tests), obtaining and/or reviewing separately otained hiistory, ordering medications,tests, procedures, referring, communicating with other health career services coordinator, indepentently interpreting results and care coordination
[2024-10-29 20:00] VITALS: BP 159/96
[2024-10-29 20:13] VITALS: RESP 27
[2024-10-29] MEDS: POTASSIUM CHLORIDE 10 MEQ/100 ML BAG 100 MEQ IV_INF ×2 (20:36→22:03)
[2024-10-29] MEDS: Normal Saline 1,000 ML 150 ML IV (20:37)
[2024-10-29 20:39] VITALS: BP 139/81
[2024-10-29 20:47] LABS: LDH 764 U/L (85-227)
[2024-10-29] MEDS: metroNIDAZOLE 500 MG/100 ML BAG 100 MG IVPB (21:10)
[2024-10-29 21:15] VITALS: BP 133/73; PULSE 60; RESP 14; TEMP 36.6; O2SAT 100
--- NOTE | 2024-10-29 22:22 | W.PC.ACHO ---
Registration Status: Primary Language: Preferred Language: ED Information & Data Chief Complaint Urinary 10/29/24 18:44 Triage Note Dark urine (maci). Back 10/29/24 17:43 pain when baring down. Recent treatment for salmonella poisoning. Recently started taking cipro to treat infection. Most Recent Vital Signs Temperature 36.6 C 10/29/24 21:15 Pulse 60 10/29/24 21:15 Pulse Rhythm Regular 10/29/24 21:15 Respiratory Rate 14 10/29/24 21:15 Respiratory Effort Normal 10/29/24 21:15 Respiratory Depth Normal 10/29/24 21:15 Respiratory Pattern Normal 10/29/24 21:15 Blood Pressure 133/73 10/29/24 21:15 Blood Pressure Mean 100 10/29/24 20:39 Blood Pressure Position Sitting 10/29/24 17:47 Pulse Oximetry 100 10/29/24 21:15 Oxygen Delivery Method Room Air 10/29/24 21:15 Oxygen Flow Rate 0 10/29/24 21:15 Pain Level 0 10/29/24 21:15 Allergies No Known Allergies Allergy (Unverified 10/29/24 17:48) Active Medications Generic Name Dose Route Start Last Admin Trade Name Freq PRN Reason Stop Dose Admin Metronidazole 500 mg in 100 mls @ 100 mls/hr 10/29/24 20:30 10/29/24 22:15 Flagyl IVPB Infused Q8H MINI Infusion Sodium Chloride 1,000 mls @ 150 mls/hr 10/29/24 19:45 10/29/24 20:37 Saline 1000ml Bag IV 150 mls/hr INFUSION MINI Administration IV IV Catheter Type [Left Saline Lock Antecubital] IV Catheter Gauge [Left 18 Antecubital] Diet Orders Category Date Time Status DIET [Regular/Normal] [DIET] Nutrition 10/30/24 Breakfast Ordered npo [Nothing Per Oral] [DIET] Nutrition 10/30/24 Breakfast Ordered Diagnostics 10/29/24 10/29/24 10/29/24 Range/Units 19:50 18:26 18:05 WBC 9.02 (4.4-10.8) 10^3/uL RBC 5.75 (4.36-5.78) 10^6/uL Hgb 16.7 (13.5-17.5) g/dL Hct 47.3 (40.0-50.0) % MCV 82 D (80-95) fL MCH 29.0 (27.0-33.0) pg MCHC 35.3 (32.0-36.0) % RDW 12.5 (11.8-14.1) % Plt Count 352 (130-400) 10^3/uL MPV 9.2 (8.0-11.0) fL Immature Gran % 0.7 % Neutrophils % 59.0 % Lymphocytes % 22.4 % Monocytes % 16.6 % Eosinophils % 0.7 % Basophils % 0.6 % Nucleated RBC % 0.0 (0.0-0.3) % Absolute Neutrophils 5.33 (1.2-6.7) 10^3/uL Absolute Lymphocytes 2.02 (1.2-3.4) 10^3/uL Absolute Monocytes 1.50 H (0.1-0.8) 10^3/uL Absolute Eosinophils 0.06 (0.0-0.7) 10^3/uL Absolute Basophils 0.05 (0.0-0.2) 10^3/uL Sodium 132 L (136-145) mmol/L Potassium 3.0 L (3.5-5.1) mmol/L Chloride 95 L (98-107) mmol/L Carbon Dioxide 29.5 (21.0-32.0) mmol/L Anion Gap 7.5 (3-11) mmol/L BUN 16 (7-18) mg/dL Creatinine 1.4 H (0.70-1.30) mg/dL Est GFR (CKD-EPI 2020) 68.49 (mL/min/1.73m2) Glucose 103 (74-106) mg/dL Calcium 9.5 (8.5-10.1) mg/dL Magnesium 2.4 (1.8-2.4) mg/dL Total Bilirubin 1.42 H (0.2-1.0) mg/dL Conjugated Bilirubin 0.5 H (0.0-0.2) mg/dL AST 110 H (15-37) U/L ALT 213 H (16-63) U/L Alkaline Phosphatase 93 (46-116) U/L Lactate Dehydrogenase 764 H (85-227) U/L Total Protein 8.2 (6.4-8.2) g/dL Albumin 3.7 (3.4-5.0) g/dL Lipase 57 (<78) U/L Urine Color Yellow (Yellow) Urine Clarity Clear (Clear) Urine pH 6.0 (5-8) Ur Specific [place] 1.015 (1.005-1.025) Urine Protein 30 H (Neg-Trace) mg/dL Urine Ketones Negative (Negative) mg/dL Urine Blood Trace-intact H (Negative) Urine Nitrite Negative (Negative) Urine Bilirubin Negative (Negative) Urine Urobilinogen 0.2 (Up to 0.2) mg/dL Ur Leukocyte Esterase Negative (Negative) Urine RBC 0-2 (0-2) HPF Urine WBC Negative (0-5) HPF Ur Epithelial Cells Negative (Negative) HPF Urine Crystals Negative (Negative) HPF Urine Bacteria Rare (Negative) HPF Urine Casts Negative (Negative) LPF Urine Mucus Trace (Negative) Urine Other Negative (Negative) Ur Culture Indicated? No Urine Glucose Negative (Negative) mg/dL Hepatitis A IgM Ab Pending Hep Bs Antigen Pending Hep B Core Total Ab Pending Hepatitis C Antibody Pending Intake and Output - 24 Hour Total 10/29/24 17:40 thru 10/29/24 22:15 Intake Total 1200 Balance 1200 Weight 117.934 kg Intake: IV 1200 Other: Urine Appearance Clear Falls Risk Assessment History of Falls No History 10/29/24 21:15 Contributing Factors No Factors 10/29/24 21:15 Ambulatory Aids Independent 10/29/24 21:15 Tubes/Lines W/no contributing factors 10/29/24 21:15 Gait Evaluation No gait disturbance 10/29/24 21:15 Cognition No cognitive impairment 10/29/24 21:15 Fall Total Score 10 10/29/24 21:15 Level of Risk Standard/Low Risk 10/29/24 21:15 Problems (Last Reviewed 10/29/24 @ 20:31 by Cady Ortiz DO) Acute diarrhea (Acute) Hypokalemia due to excessive gastrointestinal loss of potassium (Acute) Family history of elevated blood lipids (Acute) Cholecystitis with cholelithiasis (Acute) Acute hepatitis (Acute) Salmonella enteritis (Acute) v v v v v v v v v Sending and/or Receiving Nurses: Please use comment section below to note any information pertinent to the patient hand-off not included above. Information / Comments: 33 y/o M, salmonella from , questioning gallstones and possible removal of gallstones in AM. NPO at [place]. 1L of fluid, mg and K+ given in ED. Having ongoing loose stools. Ind. VSS 139/81, HR 83, Temp 36.6, O2 98. L 18g Report received from: Aleja called at [id number]
[2024-10-29] MEDS: CIPROFLOXACIN 400 MG/200 ML BAG 200 MG IVPB (22:39)
[2024-10-30 02:54] VITALS: BP 128/68; PULSE 72; RESP 14; TEMP 37.5; O2SAT 97
[2024-10-30 03:34] LABS: C Diff PCR Negative (Negative)
[2024-10-30] MEDS: metroNIDAZOLE 500 MG/100 ML BAG 100 MG IVPB (04:14)
[2024-10-30] MEDS: Normal Saline 1,000 ML 150 ML IV (06:13)
[2024-10-30 07:03] LABS: Abs Immature Grans 0.06 10^3/uL (0.0-0.06); Absolute Basophil Count 0.05 10^3/uL (0.0-0.2); Absolute Eosinophil Count 0.08 10^3/uL (0.0-0.7); Absolute Lymphocyte Count 1.74 10^3/uL (1.2-3.4); Absolute Monocyte Count 0.91 10^3/uL (0.1-0.8); Absolute Neutrophil Count 3.64 10^3/uL (1.2-6.7); Basophils % 0.8 %; Eosinophils % 1.2 %; HCT 41.4 % (40.0-50.0); HGB 14.4 g/dL (13.5-17.5); Immature Grans % 0.9 %; Lymphocytes % 26.9 %; MCH 29.1 pg (27.0-33.0); MCHC 34.8 % (32.0-36.0); MCV 84 fL (80-95); MPV 9.1 fL (8.0-11.0); Neutrophils % 56.2 %; Platelet Count 320 10^3/uL (130-400); RBC 4.94 10^6/uL (4.36-5.78); RDW 12.7 % (11.8-14.1); RDW-SD 38.7 fL; WBC 6.48 10^3/uL (4.4-10.8)
[2024-10-30 07:13] LABS: INR 1.1 (0.9-1.1); Prothrombin Time 10.7 sec (9.1-11.1)
--- NOTE | 2024-10-30 07:30 | DI.US_ITS ---
Exam(s) US ABDOMEN LIMITED EXAM: US ABDOMEN LIMITED CLINICAL HISTORY: Attention to gallbladder and liver. Possible acut TECHNIQUE: Ultrasound abdomen performed using standard protocol. COMPARISON: CT CT RENAL COLIC WO from 10/29/2024 FINDINGS: PANCREAS: Normal where visualized. LIVER: Normal. Hepatopetal flow in the Portal Vein. The liver measures in 16.1 cm length. No evidence of a hepatic mass. GALLBLADDER: No evidence of cholelithiasis. The gallbladder wall measures 5 mm which is slightly thic kened. No pericholecystic fluid identified. There is a small amount of gallbladder sludge. BILIARY SYSTEM: Common bile duct measures < 7 mm. No intrahepatic biliary ductal dilation. NAVARRO'S SIGN: Negative. RIGHT KIDNEY: Kidney is normal in size. No evidence of renal calculi. No evidence of hydronephrosis. No renal mass or cyst identified. ASCITES: None seen. IMPRESSION: 1. No evidence of cholelithiasis. 2. Small amount of gallbladder sludge and mild gallbladder wall thickening. No biliary ductal dilata tion. This is inconclusive for acute cholecystitis. If there is continued clinical concern, nuclear medicine examination should be considered. DATA REPOSITORY:
[2024-10-30 07:31] LABS: Anion Gap 8.3 mmol/L (3-11); BUN 11 mg/dL (7-18); CO2 28.7 mmol/L (21.0-32.0); CREATININE 1.1 mg/dL (0.70-1.30); Calcium 8.7 mg/dL (8.5-10.1); Chloride 103 mmol/L (98-107); Estimated GFR 91.47 (mL/min/1.73m2); Glucose 103 mg/dL (74-106); Lipase 69 U/L (<78); Potassium 3.2 mmol/L (3.5-5.1); Sodium 140 mmol/L (136-145)
[2024-10-30 07:47] LABS: ALT 171 U/L (16-63); AST 80 U/L (15-37); Alkaline Phosphatase 72 U/L (46-116); Bilirubin, Direct 0.3 mg/dL (0.0-0.2); Bilirubin, Total 0.87 mg/dL (0.2-1.0); C-Reactive Protein 6.19 mg/dL (<or=0.5); Total Protein 6.8 g/dL (6.4-8.2)
[2024-10-30 07:49] LABS: Procalcitonin 0.22 ng/mL
[2024-10-30 08:19] LABS: Ferritin 674 ng/mL (26-388); GGT 117 U/L (15-85); Magnesium 2.4 mg/dL (1.8-2.4)
[2024-10-30] MEDS: Lactobacillus Acidophilus CAP 1 CAP PO (08:34)
[2024-10-30] MEDS: Normal Saline Flush 10 ML SYR IVP (08:34)
[2024-10-30 09:17] LABS: Calculated LDL 71 mg/dL (<100); Cholesterol 123 mg/dL (<200); HDL Cholesterol 38 mg/dL (40-60); Triglyceride 71 mg/dL (<150)
--- NOTE | 2024-10-30 10:06 | W.PM.PROGNOT ---
Date of Service Date of service: 10/30/24 Time of Service: 10:06 Assessment and Plan Assessment and plan (1) Salmonella enteritis: Start date: 10/29/24 Status: Acute Assessment and plan: This is a 33-year-old gentleman with recent travel to the [place] Salmonella enteritis and was not responding well to oral therapy as an outpatient being admitted for IV hydration. He is on IV Cipro with Flagyl. Surgery has been consulted and will see patient because of an abnormal gallbladder on CT of the abdomen. He is not symptomatic for cholecystitis as it appears on the CT. He will have clear fluid diet and n.p.o. after midnight. He is a full code. (2) Acute hepatitis: Status: Acute Assessment and plan: Acutely elevated liver function test with patient not being jaundiced. This may be associated with his enteritis. It also may be associated with passing gallstones but there is no dilatation. This may have occurred when he had flank pain earlier. Surgery is consulted. (3) Cholecystitis with cholelithiasis: Start date: 10/29/24 Status: Acute Assessment and plan: Follow-up with surgery with ultrasound abdomen ordered for the morning. This may be a chronic problem slightly exacerbated by his acute Salmonella enteritis. Patient does have a very strong family history of gallstones on both sides of his family. Surgery has been consulted and will evaluate and follow. (4) Hypokalemia: Status: Acute Objective Last Vital Signs Temp 37.5 C 10/30/24 02:54 Pulse 72 10/30/24 02:54 Resp 14 10/30/24 02:54 BP 128/68 10/30/24 02:54 Pulse Ox 97 10/30/24 02:54 Laboratory Results - last 24 hr 10/29/24 10/29/24 10/29/24 18:05 18:26 19:50 WBC 9.02 RBC 5.75 Hgb 16.7 Hct 47.3 MCV 82 D MCH 29.0 MCHC 35.3 RDW 12.5 Plt Count 352 MPV 9.2 Immature Gran % 0.7 Neutrophils % 59.0 Lymphocytes % 22.4 Monocytes % 16.6 Eosinophils % 0.7 Basophils % 0.6 Nucleated RBC % 0.0 Absolute Neutrophils 5.33 Absolute Lymphocytes 2.02 Absolute Monocytes 1.50 H Absolute Eosinophils 0.06 Absolute Basophils 0.05 PT INR Sodium 132 L Potassium 3.0 L Chloride 95 L Carbon Dioxide 29.5 Anion Gap 7.5 BUN 16 Creatinine 1.4 H Est GFR (CKD-EPI 2020) 68.49 Glucose 103 Calcium 9.5 Magnesium 2.4 Ferritin Total Bilirubin 1.42 H Conjugated Bilirubin 0.5 H GGT AST 110 H ALT 213 H Alkaline Phosphatase 93 Lactate Dehydrogenase 764 H C-Reactive Protein Total Protein 8.2 Albumin 3.7 Triglycerides Total Cholesterol LDL Cholesterol, Calc HDL Cholesterol Lipase 57 Procalcitonin Urine Color Yellow Urine Clarity Clear Urine pH 6.0 Ur Specific [place] 1.015 Urine Protein 30 H Urine Ketones Negative Urine Blood Trace-intact H Urine Nitrite Negative Urine Bilirubin Negative Urine Urobilinogen 0.2 Ur Leukocyte Esterase Negative Urine RBC 0-2 Urine WBC Negative Ur Epithelial Cells Negative Urine Crystals Negative Urine Bacteria Rare Urine Casts Negative Urine Mucus Trace Urine Other Negative Ur Culture Indicated? No Urine Glucose Negative Stl C.difficile Tox PCR 10/30/24 10/30/24 02:45 06:30 WBC 6.48 RBC 4.94 Hgb 14.4 D Hct 41.4 MCV 84 MCH 29.1 MCHC 34.8 RDW 12.7 Plt Count 320 MPV 9.1 Immature Gran % 0.9 Neutrophils % 56.2 Lymphocytes % 26.9 Monocytes % 14.0 Eosinophils % 1.2 Basophils % 0.8 Nucleated RBC % 0.0 Absolute Neutrophils 3.64 Absolute Lymphocytes 1.74 Absolute Monocytes 0.91 H Absolute Eosinophils 0.08 Absolute Basophils 0.05 PT 10.7 INR 1.1 Sodium 140 Potassium 3.2 L Chloride 103 Carbon Dioxide 28.7 Anion Gap 8.3 BUN 11 Creatinine 1.1 Est GFR (CKD-EPI 2020) 91.47 Glucose 103 Calcium 8.7 Magnesium 2.4 Ferritin 674 H Total Bilirubin 0.87 Conjugated Bilirubin 0.3 H GGT 117 H AST 80 H ALT 171 H Alkaline Phosphatase 72 Lactate Dehydrogenase C-Reactive Protein 6.19 H Total Protein 6.8 Albumin 3.0 L Triglycerides 71 Total Cholesterol 123 LDL Cholesterol, Calc 71 HDL Cholesterol 38 L Lipase 69 Procalcitonin 0.22 Urine Color Urine Clarity Urine pH Ur Specific [place] Urine Protein Urine Ketones Urine Blood Urine Nitrite Urine Bilirubin Urine Urobilinogen Ur Leukocyte Esterase Urine RBC Urine WBC Ur Epithelial Cells Urine Crystals Urine Bacteria Urine Casts Urine Mucus Urine Other Ur Culture Indicated? Urine Glucose Stl C.difficile Tox PCR Negative PAWSS Have you Been Recently Intoxicated or Drunk Within the Last 30 days?: No Have you Ever Experienced Previous Episodes of Alcohol Withdrawal?: No Have you ever Experienced Withdrawal Seizures?: No Have you ever Experienced Delirium Tremens(DT)s?: No Have you ever undergone Alcohol Rehabilitation Treatment (i.e, inpt ot outpatient treatment programs)?: No Have you ever Experienced Blackouts?: No Have you ever Combined Alcohol with other Downers within the last 90 days?: No Have you ever Combined Alcohol with any other Substance of Abuse during the last 90 days?: No Positive Blood Alcohol level on Presentation? [PCS.BAL]: No Evidence of Increased Autonomic Activity (i.e. HR>120, tremor, sweating, agitation, nausea)?: No Result: 0
[2024-10-30 10:48] LABS: Bilirubin Negative (Negative); Blood Negative (Negative); Clarity Clear (Clear); Glucose Negative (Negative); Ketones Negative (Negative); Leukocyte Esterase Negative (Negative); Nitrite Negative (Negative); Urobilinogen 0.2 mg/dL (Up to 0.2)
[2024-10-30] MEDS: CIPROFLOXACIN 400 MG/200 ML BAG 200 MG IVPB (10:53)
--- NOTE | 2024-10-30 11:05 | PHA.REVIEW2 ---
Pharmacy Admission Review Admission Clinical Review Admission Pharmacy Review: Hypokalemia (Acute) Acute diarrhea (Acute) Hypokalemia due to excessive gastrointestinal loss of potassium (Acute) Family history of elevated blood lipids (Acute) Cholecystitis with cholelithiasis (Acute) Acute hepatitis (Acute) Salmonella enteritis (Acute) No Known Allergies Allergy (Unverified 10/29/24 17:48) Resuscitation Status Full Code Height 6 ft 5 in Weight 113.5 kg Pharmacy Admission Review Renal Dosing Renal Dosing: BUN 11 mg/dL (7-18) 10/30/24 06:30 Creatinine 1.1 mg/dL (0.70-1.30) 10/30/24 06:30 Medications needing adjustments: Reviewed (CrCl 134.8 mL/min, SCr decreased from 1.4) List of meds needing interventions: Current medications are okay Anticoagulation Anticoagulation: Hgb 14.4 g/dL (13.5-17.5) D 10/30/24 06:30 Hct 41.4 % (40.0-50.0) 10/30/24 06:30 Plt Count 320 10^3/uL (130-400) 10/30/24 06:30 INR 1.1 (0.9-1.1) 10/30/24 06:30 Creatinine 1.1 mg/dL (0.70-1.30) 10/30/24 06:30 DVT Prophylaxis: Reviewed (TEDs - surgical consult) Relevant Labs Relevant Labs: Sodium 140 mmol/L (136-145) 10/30/24 06:30 Potassium 3.2 mmol/L (3.5-5.1) L 10/30/24 06:30 Chloride 103 mmol/L (98-107) 10/30/24 06:30 Magnesium 2.4 mg/dL (1.8-2.4) 10/30/24 06:30 C-Reactive Protein 6.19 mg/dL (<or=0.5) H 10/30/24 06:30 Electrolytes, C-Reactive P, ESR: Reviewed (Receiving potassium infusion this AM) Cardiac Review BP, HR, EF%: Reviewed (HR and BP WNL) QTc Review QTc: Reviewed (No EKG on file) IV to PO Switch IV Medications: Reviewed (ciprofloxacin and metronidazole) Home Meds Home Med List reviewed: Reviewed Relevent Home Meds Not ordered & why?: Adderall (PRN for work) Current Meds Current Medication Order Review: Intervened Comments: Added IV admission order set Added 2nd PRN to ondansetron order per pharmacy protocol Pharmacy Antibiotic Review Relevant Labs: Relevant Labs 10/30/24 10/29/24 06:30 19:50 Lactate Dehydrogenase 764 H C-Reactive Protein 6.19 H Procalcitonin 0.22 WBC 6.48 10^3/uL (4.4-10.8) 10/30/24 06:30 Procalcitonin 0.22 ng/mL 10/30/24 06:30 Temperature 37.5 C Pharmacy Antibiotic Activity: C/S review and Reviewed, no change Comments: Patient is on ciprofloxacin and metronidazole, day 1, for salmonella enteritis and possible cholecystitis. Surgical consult today.
[2024-10-30] MEDS: POTASSIUM CHLORIDE 20 MEQ/100 ML BAG 50 MEQ IV_INF (12:26)
--- NOTE | 2024-10-30 12:54 | PDOC.CMIN ---
Date of service: 10/30/24 Time of Service: 11:00 Care Management Initial Assmt Initial Assessment Reason for Hospitalization: Salmonella enteritis Functional Status/Living Situation Patient Presentation: Law was admitted yesterday with c/o nearly constant diarrhea. He and his had recently travelled, and many people in his group also got sick. Law seemed to get the worst of it. He failed outpatient therapy, and was admitted for IV hydration and antibiotics. When CM met with Harley, he was sitting up in the bed. His Payal was present. They were both very friendly and engaged well. Harley and Payal recently, within the last few months, moved to [place] from [place]. They wanted to live somewhere with lots of water and are loving it here. Harley mentioned that he had already had his U/S this morning, was feeling great and was hoping to eat. His diarrhea had pretty much stopped. CM contacted the provider, and Harley was placed on a regular diet for lunch. CM checked on Harley after lunch, and he stated he ate well and feels great. The lunch did not increase his diarrhea, or cause any abdominal distress. 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) Instrumental Activities of Daily Living (ADLs): Independent Activities/Hobbies/SocialSupport: likes to travel Medications Medication Management: No Issues/Barriers identified (not presently on any home meds) Advance Directives Advance Directives: Do you have an Advance Directive: N 10/26/24 20:39 AD On File at [facility]: N 10/26/24 19:10 Date Asked 10/29/24 10/29/24 17:50 AD Date Reviewed COLST On File at [facility] No 10/26/24 19:10 COLST Date Scanned Code Status Resuscitation Status Full Code Portal Pt does not currently have a portal and education provided: Yes Insurance Coverage/Financial Issues Insurance: [employer] Financial Issues: denies Care Team Visit Care Team Role Provider Type None None Primary Care Provider NON-[facility] STAFF PHYSICIAN Cady Ortiz, DO Other Providers OSTEOPATHIC DOCTOR NORMA Jones Emergency Provider PHYSICIANS EXTERNAL GRINDER TENDER Thiago Potter Admit Provider NON-[facility] STAFF PHYSICIAN Attending Provider Other: Harley will be assigned to the T-Doc , Dusty Clements. An appointment will be made for him prior to discharge. Discharge Potential Discharge Needs: PCP F/U Appt (Harley will be assigned to Dusty Clements at [facility]) Anticipated Barriers to Discharge: None Identified Patient/Family Education Needs: Review discharge instructions, discuss Ask Me Three Transportation: Private vehicle Plan: Anticipate that Harley will be discharged home later today. He will f/u with his new PCP at an appointment made for him prior to discharge. He will have no new services and will transport home with his . CM will continue to follow. Social Determinants of Health Screening Social Determinants of Health last assessed: 10/30/24 Will the Patient Participate in the Screening?: Yes Do you worry about having a steady place to live?: no Problems where you live: no known problems In the past 12 months, have you had to go without electric, gas, oil or water in your home?: no Have you or anyone in your house had to go without enough food to eat?: no Has lack of transportation kept you from medical appointments or from doing things needed for daily living?: no Has anyone in your life made you feel unsafe or unsupported?: no How hard is it for you to pay for the very basics like food, housing, medical care, and heating? Would you say it is:: Not hard at all Do you want help finding or keeping work or a job?: I do not need or want help If for any reason you need help with day-to-day activities such as bathing, preparing meals, shopping, managing finances, etc., do you get the help you need?: I don?t need any help How often do you feel lonely or isolated from those around you?: Never Do you speak a language other than Hebrew at home?: No Does the patient want assistance with any of the above?: No PFSH All Active Problems (Updated 10/30/24 @ 14:18 by Jaqui Valerio APRN) Hypokalemia (Acute) Acute diarrhea (Acute) Hypokalemia due to excessive gastrointestinal loss of potassium (Acute) Family history of elevated blood lipids (Acute) Cholecystitis with cholelithiasis (Acute) Acute hepatitis (Acute) Salmonella enteritis (Acute) Social History Smoking/Tobacco Use Status: Never Smoking risk assessment performed?: Yes Alcohol Intake: current Alcohol Intake frequency: a few times a month Alcohol type: beer Substance use type: does not use Housing: house Do you feel safe at home: Yes Readmission Within the Past 30 Days Yes or No: No
--- NOTE | 2024-10-30 13:32 | DSE_ITS ---
Date of service: 10/30/24 Time of Service: 13:33 DS: Diagnosis Discharge Diagnosis (1) Salmonella enteritis: Status: Acute (2) Acute hepatitis: Status: Acute (3) Cholecystitis with cholelithiasis: Status: Acute (4) Hypokalemia: Status: Acute Discharge Plan Disposition Patient Disposition: Home Condition: Improving Discharge Details Reason For Visit: Salmonella enteritis, cholecystitis with cholelith Admit Date/Time: 10/29/24 19:50 Admit Provider: Thiago Potter Attending Provider: Thiago Potter Primary Care Provider: None,None Hospital Course Hospital Course: This 33-year-old male patient without significant past medical history except ADHD, tobacco abuse, THC use and ongoing diarrhea status post confirmed Salmonella infection acquired during a recent trip to the [place]. The patient initially presented to [facility] on 10/26/2024 and was sent home on azithromycin which was then switched to ciprofloxacin; after 2 doses the patient represented to the ED and reported having 25 episodes of diarrhea a day. Also reported right flank pain without radiation; nausea and vomiting managed with oral Zofran with last episode on Monday. No reports of high fevers, hematochezia or melena, shortness of breath, chest pain or syncope. Workup in the ED was positive for slight hyponatremia, hypokalemia, transaminitis with total bilirubin at 1.4 and conjugated bili at 0.5. Creatinine was 1.5. Imaging revealed mild pericholecystic fat stranding with small density in the gallbladder lumen without CKD or gallbladder distention. Further evaluation with abdominal ultrasound revealed no evidence of cholelithiasis but showed minimal amount of gallbladder sludge and again gallbladder wall thickening. Hospitalist was consulted and the patient admitted to the medical surgical floor for evaluation and management of Salmonella enteritis, WADE, hypokalemia. In the ED treatment was initiated with IV ciprofloxacin and metronidazole with bowel rest. Surgery was consulted and acute cholecystitis was ruled out without any emergent interventions recommended. Discussion with patient pointing to considering gallbladder disease without acute cholecystitis, minimal risk of malaria in the [place] as per surgical providers notes. Hepatitis panel results are still pending. Today the patient had 3 episodes of diarrhea with less liquid stools, no further abdominal pain or bloating and was able to tolerate oral intake. Transaminitis and creatinine level improved. The patient will be discharged home with recommendation for a GI referral in the setting of above-mentioned gallbladder findings from his primary care practitioner. The patient will need to see his primary care practitioner within 7 days of discharge with follow-up on his hepatitis panel. The patient will be discharged home on oral Flagyl, and a probiotic to be taken 3 hours apart from any antibiotics. The patient will have to complete the course of ciprofloxacin initiated prior to this admission. Discussed with Dr. So Home Meds and New Rx's Prescriptions: New metronidazole 500 mg tablet 500 mg PO TID Qty: 21 0RF Bio-K plus 50 billion cell capsule,delayed release(DR/EC) 1 cap PO DAILY Qty: 7 0RF Continued ondansetron 4 mg tablet,disintegrating 4 mg PO Q8H PRNQty: 7 0RF ciprofloxacin HCl 500 mg tablet 500 mg PO Q12H dextroamphetamine-amphetamine [Adderall] 20 mg tablet 20 mg PO DAILY PRN (Reason: work) Discharge Instructions Stand Alone Forms: Nursing Discharge Form Referrals: Dusty Clements DO [OSTEOPATHIC DOCTOR] - 11/13/24 3:00 pm (Appointment will be with Lashonda Chase. ) Activity:: Activity as Tolerated Equipment/Supplies:: No Equipment Needed Diet:: As Tolerated DS: Summary Time Spent with Patient providing and/or coordinating discharge services: Greater than 30 minutes Status at Discharge Functional status at discharge: independent ambulation Overall status at discharge: patient is progressing back to baseline Mental Status: mental status grossly normal Speech and Movement: speech and movement normal Mood: congruent mood Affect: normal affect Quality:SDOH Health Related Social Needs: No Data to Display Exam Narrative Exam Narrative: Constitutional The patient is in bed comfortable, well groomed without acute distress HENMT: Facial structures with normal appearance Eyes: Well aligned, intact ROM Neck:No JVD, no meningeal sign Neuro:alert and oriented X4, non-focal Chest:Chest is symmetrical and normal appearance Resp: Unlabored breathing, clear lung bilaterally Cardio: regular rhythm, S1, S2, no murmur, positive pulses to all 4 ext. GI: Negative Ribeiro's, abdomen is not distended, soft and non tender, bowel sounds are present : Negative Costovertebral angle tenderness Integumentary: No skin lesions or rash seen on exposed skin Extremities: strength 5/5 to bilateral lower and upper extremities Psych: RASS 0, congruent mood and normal affect. Psych Mental Status: mental status grossly normal Speech and Movement: speech and movement normal Mood: congruent mood Affect: normal affect DS: Data Vitals/I&O Vitals and I&O: Vital Signs Temperature 37.5 C 10/30/24 02:54 Temperature Source Tympanic 10/30/24 02:54 Pulse 72 10/30/24 02:54 Pulse Rhythm Regular 10/29/24 21:15 Respiratory Rate 14 10/30/24 02:54 Respiratory Effort Normal 10/29/24 21:15 Respiratory Depth Normal 10/29/24 21:15 Respiratory Pattern Normal 10/29/24 21:15 Blood Pressure 128/68 10/30/24 02:54 Blood Pressure Mean 100 10/29/24 20:39 Blood Pressure Position Sitting 10/29/24 17:47 Pulse Oximetry 97 10/30/24 02:54 Oxygen Delivery Method Room Air 10/30/24 02:54 Oxygen Flow Rate 0 10/30/24 02:54 Pain Level 0 10/30/24 09:15 Intake & Output 10/29/24 10/30/24 10/30/24 23:59 11:59 23:59 Intake Total 1200 / 1200 1207.5 / 1457.5 250 / 1457.5 Output Total 240 / 240 Balance 1200 / 1200 967.5 / 1217.5 250 / 1217.5 Weight 113.7 kg 113.5 kg Intake: IV 1200 / 1200 1207.5 / 1207.5 Oral 0 / 250 250 / 250 Output: Urine 240 / 240 Other: Urine Color Yellow Urine Appearance Clear Clear Urine Odor Normal Comment pt voided Stool Size Moderate Stool Characteristics Soft Data Completed and Pending Labs on day of discharge: Labs from last 24 hours 10/30/24 10/30/24 10/30/24 10:00 06:30 02:45 WBC 6.48 RBC 4.94 Hgb 14.4 D Hct 41.4 MCV 84 MCH 29.1 MCHC 34.8 RDW 12.7 Plt Count 320 MPV 9.1 Immature Gran % 0.9 Neutrophils % 56.2 Lymphocytes % 26.9 Monocytes % 14.0 Eosinophils % 1.2 Basophils % 0.8 Nucleated RBC % 0.0 Absolute Neutrophils 3.64 Absolute Lymphocytes 1.74 Absolute Monocytes 0.91 H Absolute Eosinophils 0.08 Absolute Basophils 0.05 PT 10.7 INR 1.1 Sodium 140 Potassium 3.2 L Chloride 103 Carbon Dioxide 28.7 Anion Gap 8.3 BUN 11 Creatinine 1.1 Est GFR (CKD-EPI 2020) 91.47 Glucose 103 Calcium 8.7 Magnesium 2.4 Ferritin 674 H Total Bilirubin 0.87 Conjugated Bilirubin 0.3 H GGT 117 H AST 80 H ALT 171 H Alkaline Phosphatase 72 Lactate Dehydrogenase C-Reactive Protein 6.19 H Total Protein 6.8 Albumin 3.0 L Triglycerides 71 Total Cholesterol 123 LDL Cholesterol, Calc 71 HDL Cholesterol 38 L Lipase 69 Procalcitonin 0.22 Urine Color Yellow Urine Clarity Clear Urine pH 6.0 Ur Specific [place] 1.020 Urine Protein Negative Urine Ketones Negative Urine Blood Negative Urine Nitrite Negative Urine Bilirubin Negative Urine Urobilinogen 0.2 Ur Leukocyte Esterase Negative Urine RBC Urine WBC Ur Epithelial Cells Urine Crystals Urine Bacteria Urine Casts Urine Mucus Urine Other Ur Culture Indicated? Urine Glucose Negative Stl C.difficile Tox PCR Negative Hepatitis A IgM Ab Hep Bs Antigen Hep B Core Total Ab Hepatitis C Antibody 10/29/24 10/29/24 10/29/24 19:50 18:26 18:05 WBC 9.02 RBC 5.75 Hgb 16.7 Hct 47.3 MCV 82 D MCH 29.0 MCHC 35.3 RDW 12.5 Plt Count 352 MPV 9.2 Immature Gran % 0.7 Neutrophils % 59.0 Lymphocytes % 22.4 Monocytes % 16.6 Eosinophils % 0.7 Basophils % 0.6 Nucleated RBC % 0.0 Absolute Neutrophils 5.33 Absolute Lymphocytes 2.02 Absolute Monocytes 1.50 H Absolute Eosinophils 0.06 Absolute Basophils 0.05 PT INR Sodium 132 L Potassium 3.0 L Chloride 95 L Carbon Dioxide 29.5 Anion Gap 7.5 BUN 16 Creatinine 1.4 H Est GFR (CKD-EPI 2020) 68.49 Glucose 103 Calcium 9.5 Magnesium 2.4 Ferritin Total Bilirubin 1.42 H Conjugated Bilirubin 0.5 H GGT AST 110 H ALT 213 H Alkaline Phosphatase 93 Lactate Dehydrogenase 764 H C-Reactive Protein Total Protein 8.2 Albumin 3.7 Triglycerides Total Cholesterol LDL Cholesterol, Calc HDL Cholesterol Lipase 57 Procalcitonin Urine Color Yellow Urine Clarity Clear Urine pH 6.0 Ur Specific [place] 1.015 Urine Protein 30 H Urine Ketones Negative Urine Blood Trace-intact H Urine Nitrite Negative Urine Bilirubin Negative Urine Urobilinogen 0.2 Ur Leukocyte Esterase Negative Urine RBC 0-2 Urine WBC Negative Ur Epithelial Cells Negative Urine Crystals Negative Urine Bacteria Rare Urine Casts Negative Urine Mucus Trace Urine Other Negative Ur Culture Indicated? No Urine Glucose Negative Stl C.difficile Tox PCR Hepatitis A IgM Ab Pending Hep Bs Antigen Pending Hep B Core Total Ab Pending Hepatitis C Antibody Pending PFSH All Active Problems (Updated 10/30/24 @ 14:18 by Jaqui Valerio APRN) Hypokalemia (Acute) Acute diarrhea (Acute) Hypokalemia due to excessive gastrointestinal loss of potassium (Acute) Family history of elevated blood lipids (Acute) Cholecystitis with cholelithiasis (Acute) Acute hepatitis (Acute) Salmonella enteritis (Acute) Social History Smoking/Tobacco Use Status: Never Smoking risk assessment performed?: Yes Alcohol Intake: current Alcohol Intake frequency: a few times a month Alcohol type: beer Substance use type: does not use Housing: house Do you feel safe at home: Yes Time Spent with Patient Time Spent with Patient: 70-84 minutes4 Time was spent: preparing to see the patient(eg.review tests), obtaining and/or reviewing separately otained hiistory, ordering medications,tests, procedures, referring, communicating with other health healthcare insurance sales agent, indepentently interpreting results, counseling the patient and care coordination
[2024-10-30] MEDS: Potassium Chloride 20 MEQ TABCR 40 MEQ PO (14:42)
--- NOTE | 2024-10-30 16:09 | PDOC.CMDIS ---
Date of service: 10/30/24 Time of Service: 16:09 LACE Index Scoring Tool Questions: Length of Stay (in days): 1 Was the patient admitted via the E.D.?: Yes E.D. Visits: 2 Answers: Total Score: 6 Risk of Readmission: Low Risk Care Management Discharge Plan Reason for Hospitalization: salmonella enteritis/ acute diarrhea Discharge Plan: Harley was discharged home today with new medication orders for flagyl and and probiotic. He has a PCP appt with Dusty Clements on 11/13/23. He will establish his care at [facility]. Harley will follow his discharge plan of care, and transport home with his . Patient/Family Education Needs: Review of discharge instructions, activity, limitations, dietary restrictions, f/u plan and ask me 3. SDOH Health Related Social Needs: No Data to Display
[2024-10-30 20:14] LABS: Hepatitis A Antibody IgM Negative (Negative); Hepatitis B Core Antibody Negative (Negative); Hepatitis B surface Ag Negative (Negative); Hepatitis C Ab w Rflx HCV PCR Negative (Negative)
== END 2024-10-30 15:22 | disposition home or self-care (01) | DRG 372 ==
LOC: ER 20:28 → MS 10-30 09:17
PROVIDERS: Surgery; Admitting Provider Family Medicine; Emergency Provider Physician Assistant; Visit Provider Family Medicine
DX: A02.0 Salmonella enteritis (principal); B17.9 Acute viral hepatitis, unspecified; E87.1 Hypo-osmolality and hyponatremia; N17.9 Acute kidney failure, unspecified; E87.6 Hypokalemia; F90.9 Attention-deficit hyperactivity disorder, unspecified type; F17.210 Nicotine dependence, cigarettes, uncomplicated; F12.90 Cannabis use, unspecified, uncomplicated; R74.01 Elevation of levels of liver transaminase levels; Z83.438 Family history of other disorder of lipoprotein metabolism and other lipidemia; K82.8 Other specified diseases of gallbladder
CPT/HCPCS: 00123; 36415; 80048; 80061; 80076; 83690; 84145; 86704; 86709; 86803; 87040; 87340; 87493; 96361; 96365; 96367; 99285; 74176; 76705; 81003; 81015; 82728; 82977; 83615; 83735; 85025; 85610; 86140; 99223; 99239; G0378; J0744; J1836; J3475; J3480

== ENCOUNTER 2024-11-15 16:32 | Outpatient (CLI) | payer OTHER, SELFPAY ==
[2024-11-15 17:35] LABS: ALT 124 U/L (16-63); AST 45 U/L (15-37); Albumin 4.1 g/dL (3.4-5.0); Alkaline Phosphatase 53 U/L (46-116); Bilirubin, Total 0.71 mg/dL (0.2-1.0); Ferritin 391 ng/mL (26-388); Total Protein 8.2 g/dL (6.4-8.2)
[2024-11-15 18:06] LABS: Bilirubin, Direct 0.2 mg/dL (0.0-0.2)
== END 2024-11-15 16:33 | disposition home or self-care (01) ==
LOC: LBO 16:33
PROVIDERS: PCP Nurse Practitioner Family; Visit Provider Nurse Practitioner Family
DX: R79.89 Other specified abnormal findings of blood chemistry (principal); R74.01 Elevation of levels of liver transaminase levels
CPT/HCPCS: 36415; 80076; 82728

== ENCOUNTER 2025-02-07 00:09 | Outpatient (CLI) | payer OTHER, SELFPAY ==
--- NOTE | 2025-02-07 07:53 | DI.RAD_ITS ---
Exam(s) XR HAND RT COMPLETE EXAM: XR HAND RT COMPLETE CLINICAL HISTORY: Hx scaphoid bone fx,,rt hand pain,m79.641. TECHNIQUE: 2D digital imaging was performed. COMPARISON: CR XR WRIST RT COMPLETE from 02/07/2025 FINDINGS: 3 views No evidence of acute fracture or dislocation. Bone density normal. No osseous lesions nor erosions. There in a calcific density adjacent to the lateral aspect of the base of the proximal phalanx of the 3rd-middle finger, this measuring 3 x 2 mm and not having the appearance of an acute fracture fragme nt. No other significant soft tissue calcifications. No radiopaque foreign bodies. IMPRESSION: No acute osseous findings in the hand. There is a 3 x 2 millimeter calcific density adjacent to the lateral aspect of the base of the proximal phalanx of the 3rd-middle finger. This does not have the appearance of an acute fracture fragment. DATA REPOSITORY: RADIATION DOSE DELIVERED:
--- NOTE | 2025-02-07 07:53 | DI.RAD_ITS ---
Exam(s) XR WRIST RT COMPLETE EXAM: XR WRIST RT COMPLETE CLINICAL HISTORY: hx scaphoid fracture,rt wrist pain,M25.531. TECHNIQUE: 2D digital imaging was performed. COMPARISON: No exams were available for comparison FINDINGS: 3 views No evidence of fracture or dislocation nor significant ulnar variance. Scaphoid and scapholunate dis tance are normal. Bone density normal. No osseous lesions. No radiopaque foreign bodies. IMPRESSION: No significant osseous findings in the wrist. DATA REPOSITORY: RADIATION DOSE DELIVERED:
== END 2025-02-07 00:29 ==
LOC: DI 00:09
PROVIDERS: PCP Nurse Practitioner Family; Visit Provider Nurse Practitioner Family
DX: M79.641 Pain in right hand (principal); M25.531 Pain in right wrist
CPT/HCPCS: 73110; 73130